=== PATIENT | female | born 1965 | race Asian ===

== ENCOUNTER 2020-06-23 09:27 | Emergency (ER) | payer SELFPAY ==
[~2020-06-23] VITALS: Ht 154.9 cm; Wt 70.0 kg
[2020-06-23 09:33] VITALS: BP 177/77
[2020-06-23] MEDS ORDERED: IBUP-2029 MT (10:36)
== END 2020-06-23 11:14 | disposition home or self-care (01) ==
LOC: ER 09:42
DX: M25.562 Pain in left knee (principal); M25.561 Pain in right knee; W01.0XXA Fall on same level from slipping, tripping and stumbling without subsequent striking against object, initial encounter; Y93.89 Activity, other specified; Y92.000 Kitchen of unspecified non-institutional (private) residence as the place of occurrence of the external cause
CPT/HCPCS: 73562; 99283

== ENCOUNTER 2021-05-01 14:05 | Emergency (ER) | payer SELFPAY ==
[~2021-05-01] VITALS: Ht 154.9 cm; Wt 66.2 kg
[~2021-05-01 14:05] MED LIST: IBUP-2029 MT
[2021-05-01] MEDS ORDERED: ALBU6.7H15 INH (16:19)
[2021-05-01 16:44] VITALS: BP 155/60
== END 2021-05-01 16:49 | disposition home or self-care (01) ==
LOC: ER 14:05
DX: Z20.822 Contact with and (suspected) exposure to COVID-19 (principal); Z98.890 Other specified postprocedural states
CPT/HCPCS: 87426; 93005; 99284

== ENCOUNTER 2021-10-13 19:31 | Emergency (ER) | payer MEDICAID, OTHER ==
[~2021-10-13] VITALS: Ht 154.9 cm; Wt 74.5 kg
[~2021-10-13 19:31] MED LIST changes: +ALBU6.7H15 INH
[2021-10-13 19:45] VITALS: BP 144/79
[2021-10-13] MEDS ORDERED: BO1 TP (21:23)
[2021-10-13] MEDS ORDERED: BACITRACIN ZINC OINT UDPKT TOP NR (21:30)
== END 2021-10-13 21:52 | disposition home or self-care (01) ==
LOC: ER 19:43
DX: T22.211A Burn of second degree of right forearm, initial encounter (principal); Z98.890 Other specified postprocedural states; X18.XXXA Contact with other hot metals, initial encounter; Y93.89 Activity, other specified; Y92.89 Other specified places as the place of occurrence of the external cause; Y99.8 Other external cause status; Z79.899 Other long term (current) drug therapy
CPT/HCPCS: 16020; 99282

== ENCOUNTER 2021-11-26 13:43 | Emergency (ER) | payer MEDICAID, OTHER ==
[~2021-11-26] VITALS: Ht 165.1 cm; Wt 73.0 kg
[~2021-11-26 13:43] MED LIST changes: +BO1 TP
[2021-11-26 14:01] VITALS: BP 137/77
[2021-11-26] MEDS ORDERED: IBUPROFEN 600MG TABLET PO STA (16:14)
[2021-11-26] MEDS ORDERED: TRAM50TA3 PO (19:01)
[2021-11-26] MEDS ORDERED: DICL100G32 TP (19:01)
[2021-11-26] MEDS ORDERED: NAPR-681 PO (19:01)
== END 2021-11-26 19:19 | disposition home or self-care (01) ==
LOC: ER 13:43
DX: M79.641 Pain in right hand (principal)
CPT/HCPCS: 73130; 99283

== ENCOUNTER 2021-11-27 19:30 | Emergency (ER) | payer OTHER ==
[~2021-11-27] VITALS: Ht 160 cm; Wt 62.0 kg
[~2021-11-27 19:30] MED LIST changes: +DICL100G32 TP; +NAPR-681 PO; +TRAM50TA3 PO
[2021-11-27 19:38] VITALS: BP 182/81
== END 2021-11-27 23:38 | disposition left against medical advice (07) ==
LOC: ER 19:30
DX: Z53.21 Procedure and treatment not carried out due to patient leaving prior to being seen by health care provider (principal)

== ENCOUNTER 2022-01-25 18:58 | Emergency (ER) | payer OTHER ==
[~2022-01-25] VITALS: Ht 165.1 cm; Wt 75.0 kg
[2022-01-25] MEDS ORDERED: NAPR-681 MT (20:55)
[2022-01-25] MEDS ORDERED: HYDROCODONE/ACETAMINOPHEN 5/325MG TABLET PO ONE (21:00)
[2022-01-25 21:20] VITALS: BP 118/78
== END 2022-01-25 21:24 | disposition home or self-care (01) ==
LOC: ER 18:58
DX: G89.29 Other chronic pain (principal); M24.541 Contracture, right hand; M79.644 Pain in right finger(s); Z87.828 Personal history of other (healed) physical injury and trauma; Z98.890 Other specified postprocedural states
CPT/HCPCS: 73130; 99283

== ENCOUNTER 2022-09-07 10:46 | Emergency (ER) | payer MEDICAID, OTHER ==
[~2022-09-07] VITALS: Ht 160 cm; Wt 59.0 kg
[~2022-09-07 10:46] MED LIST changes: +NAPR-681 MT
[2022-09-07 10:51] VITALS: BP 133/79
[2022-09-07 11:58] LABS: BASOPHILS % 0.8 % (0.0-2.0); EOSINOPHILS % 0.9 % (0.0-5.0); HEMATOCRIT. 43.7 % (36.0-48.0); HEMOGLOBIN. 14.9 g/dL (12.0-16.0); LYMPHOCYTES % 19.5 % (20.0-50.0); MEAN PLATELET VOLUME 10.2 fl (7.4-10.4); MONOCYTES % 6.7 % (2.0-8.0); NEUTROPHILS % 72.1 % (40.0-76.0); PLATELET 220 x1000/uL (130-400); RED CELL DISTRIBUTION WIDTH 13.1 % (11.6-14.6)
[2022-09-07 12:08] LABS: CHLORIDE 105 mEq/L (98-107)
[2022-09-07] MEDS ORDERED: ONDANSETRON HCL 4MG/2ML INJ IV STA (18:26)
[2022-09-07] MEDS ORDERED: MECLIZINE 12.5MG TABLET PO NR (18:30)
[2022-09-07] MEDS ORDERED: SODIUM CHLORIDE 0.9% 1,000 ML IV ONE (18:30)
[2022-09-07] MEDS ORDERED: MECLIZINE 25MG TABLET PO ONE (18:30)
[2022-09-07] MEDS ORDERED: BENZ200C52 MT (21:46)
== END 2022-09-07 21:53 | disposition home or self-care (01) ==
LOC: ER 11:25
DX: R05.1 Acute cough (principal); R42 Dizziness and giddiness; R51.9 Headache, unspecified; Z20.822 Contact with and (suspected) exposure to COVID-19
CPT/HCPCS: 36415; 70450; 71045; 80053; 83880; 84484; 85025; 87426; 93005; 96361; 96374; 99285; C9803; J2405; J7030; J8597

== ENCOUNTER 2022-09-26 22:18 | Emergency (ER) | payer MEDICAID ==
[~2022-09-26] VITALS: Ht 154.9 cm; Wt 61.9 kg
[~2022-09-26 22:18] MED LIST changes: +BENZ200C52 MT
[2022-09-26 22:20] VITALS: BP 119/75
[2022-09-26] MEDS ORDERED: IBUPROFEN 400MG TABLET PO ONE (23:45)
[2022-09-27] MEDS ORDERED: ACET-2708 MT (00:26)
== END 2022-09-27 02:09 | disposition home or self-care (01) ==
LOC: ER 22:18
DX: M79.671 Pain in right foot (principal); Z87.01 Personal history of pneumonia (recurrent); Z98.890 Other specified postprocedural states; Z79.899 Other long term (current) drug therapy
CPT/HCPCS: 73630; 99283; Z7610

== ENCOUNTER 2022-09-30 15:52 | Emergency (ER) | payer MEDICAID ==
[~2022-09-30] VITALS: Ht 157.5 cm; Wt 69.0 kg
[~2022-09-30 15:52] MED LIST changes: +ACET-2708 MT
[2022-09-30] MEDS ORDERED: KETOROLAC 60MG/2ML VIAL IM STA (17:46)
[2022-09-30] MEDS ORDERED: HYDR-4001 PO (17:52)
[2022-09-30] MEDS ORDERED: NAPR-681 PO (17:52)
[2022-09-30 19:09] VITALS: BP 122/63
== END 2022-09-30 19:12 | disposition home or self-care (01) ==
LOC: ER 15:52
DX: S92.351A Displaced fracture of fifth metatarsal bone, right foot, initial encounter for closed fracture (principal); Z79.899 Other long term (current) drug therapy; Z98.890 Other specified postprocedural states; X58.XXXA Exposure to other specified factors, initial encounter; Y93.89 Activity, other specified; Y92.89 Other specified places as the place of occurrence of the external cause; Y99.8 Other external cause status
CPT/HCPCS: 81025; 96372; 99283; J1885

== ENCOUNTER 2023-02-22 11:10 | Emergency (ER) | payer MEDICAID, OTHER ==
[~2023-02-22] VITALS: Ht 162.6 cm; Wt 65.0 kg
[~2023-02-22 11:10] MED LIST changes: +HYDR-4001 PO
[2023-02-22 11:15] VITALS: O2SAT 97
[2023-02-22 12:11] LABS: CLARITY URINE CLEAR (CLEAR); COLOR URINE YELLOW (YELLOW); GLUCOSE URINE NEGATIVE (NEGATIVE); KETONES URINE NEGATIVE (NEGATIVE); LEUKOCYTE ESTERASE URINE NEGATIVE (NEGATIVE); NITRITE URINE NEGATIVE (NEGATIVE); OCCULT BLOOD URINE NEGATIVE (NEGATIVE); PH URINE 5.5 (4.5-8.0); PROTEIN URINE NEGATIVE (NEGATIVE); SPECIFIC GRAVITY URINE 1.012 (1.005-1.030); UROBILINOGEN URINE 0.2 E.U./dL (0.2-1.0)
[2023-02-22 12:19] LABS: BASOPHILS % 0.6 % (0.0-2.0); EOSINOPHILS % 2.3 % (0.0-5.0); HEMATOCRIT. 36.4 % (36.0-48.0); HEMOGLOBIN. 12.1 g/dL (12.0-16.0); LYMPHOCYTES % 19.5 % (20.0-50.0); MEAN CORPUSCULAR HEMOGLOBIN 29.9 pg (28.0-32.0); MEAN CORPUSCULAR HGB CONC 33.2 g/dL (31.0-37.0); MEAN CORPUSCULAR VOLUME 90.1 fL (81.0-99.0); MEAN PLATELET VOLUME 9.5 fl (7.4-10.4); MONOCYTES % 9.8 % (2.0-8.0); NEUTROPHILS % 67.8 % (40.0-76.0); PLATELET 225 x1000/uL (130-400); RED BLOOD CELL COUNT 4.04 mill/uL (4.2-5.4); RED CELL DISTRIBUTION WIDTH 12.7 % (11.6-14.6); WHITE BLOOD COUNT 8.7 x1000/uL (4.5-11.0)
[2023-02-22 12:26] LABS: CHLORIDE 107 mEq/L (98-107); INDEX HEMOLYSI 1 (1-3); INDEX ICTERIC 1 (1-4); INDEX LIPEMIC 1 (1-3); POTASSIUM 3.5 mEq/L (3.5-5.1); SODIUM 138 mEq/L (136-145)
[2023-02-22 12:30] LABS: PROTHROMBIN TIME 10.5 sec (9.6-11.0)
[2023-02-22 12:39] LABS: ALANINE AMINOTRANSFERASE 22 IU/L (13-61); ALBUMIN 3.2 g/dL (3.4-5.0); ASPARTATE AMINOTRANSFERASE 17 IU/L (15-37); BILIRUBIN TOTAL 0.7 mg/dL (0.1-1.0); CALCIUM 8.4 mg/dL (8.5-10.1); CARBON DIOXIDE 28 mEq/L (21-32); CREATININE 0.6 mg/dL (0.6-1.3); GLUCOSE 175 mg/dL (70-105); NT PRO B-TYPE NATRIURETIC PEP 139 pg/mL (5-125); PROTEIN TOTAL 8.3 g/dL (6.0-8.3); TROPONIN I HIGH SENSITIVITY 14 ng/L (<54); UREA NITROGEN BLOOD 14 mg/dL (7-21)
[2023-02-22] MEDS ORDERED: FUROSEMIDE 40MG/4ML VIAL IVP ONE (12:45)
[2023-02-22] MEDS ORDERED: ALBUTEROL (0.083%) 2.5MG/3ML NEB HHN ONE (13:30)
[2023-02-22] MEDS ORDERED: MED4 MT (13:53)
[2023-02-22] MEDS ORDERED: ALBU6.7H15 INH ×2 (13:53)
[2023-02-22] MEDS ORDERED: FUROSEMIDE 40MG/4ML VIAL IVP NR (14:33)
[2023-02-22 15:00] VITALS: PULSE 80; RESP 20
[2023-02-22] MEDS ORDERED: IPRATROPIUM/ALBUTEROL 0.5-3(2.5)MG/3ML NEB HHN ONE (15:00)
[2023-02-22] MEDS ORDERED: ALBUTEROL (0.083%) 2.5MG/3ML NEB HHN NR (15:05)
[2023-02-22 16:09] VITALS: BP 132/86; PULSE 80; RESP 20; TEMP 98.5
== END 2023-02-22 16:10 | disposition home or self-care (01) ==
LOC: ER 11:10
DX: J20.9 Acute bronchitis, unspecified (principal); Z98.890 Other specified postprocedural states
CPT/HCPCS: 80053; 81003; 83880; 85025; 85610; 84484; 36415; 71045; 94640; 93005; 99285; Z7610 ×3; J1940

== ENCOUNTER 2024-02-12 10:06 | Emergency (ER) | payer MEDICAID, OTHER ==
[~2024-02-12] VITALS: Ht 152.4 cm; Wt 74.6 kg
[~2024-02-12 10:06] MED LIST changes: -IBUP-2029 MT; +MECL-299 MT; +MELO-105 PO; -NAPR-681 MT; -NAPR-681 PO; +PANT40TA51 PO
[2024-02-12 10:19] VITALS: O2SAT 97
[2024-02-12 10:59] LABS: BASOPHILS % 0.9 % (0.0-2.0); EOSINOPHILS % 3.1 % (0.0-5.0); HEMATOCRIT. 38.4 % (36.0-48.0); HEMOGLOBIN. 12.5 g/dL (12.0-16.0); LYMPHOCYTES % 32.2 % (20.0-50.0); MEAN CORPUSCULAR HEMOGLOBIN 29.6 pg (28.0-32.0); MEAN CORPUSCULAR HGB CONC 32.5 g/dL (31.0-37.0); MEAN PLATELET VOLUME 10.2 fl (7.4-10.4); MONOCYTES % 7.2 % (2.0-8.0); NEUTROPHILS % 56.6 % (40.0-76.0); PLATELET 174 x1000/uL (130-400); RED BLOOD CELL COUNT 4.22 mill/uL (4.2-5.4); RED CELL DISTRIBUTION WIDTH 13.3 % (11.6-14.6); WHITE BLOOD COUNT 6.8 x1000/uL (4.5-11.0)
[2024-02-12 11:05] LABS: CHLORIDE 104 mEq/L (98-107); POTASSIUM 3.7 mEq/L (3.5-5.1); SODIUM 138 mEq/L (136-145)
[2024-02-12 11:06] LABS: CARBON DIOXIDE 28 mEq/L (21-32)
[2024-02-12 11:10] LABS: TROPONIN I HIGH SENSITIVITY 15 ng/L (3.0-34)
[2024-02-12 11:11] LABS: CREATININE 0.7 mg/dL (0.6-1.0); GLUCOSE 186 mg/dL (70-105); UREA NITROGEN BLOOD 13 mg/dL (9-23)
[2024-02-12] MEDS ORDERED: ALBU18HF2 IH (11:49)
[2024-02-12] MEDS ORDERED: FLUT15.844 BOTHNSTRLS (11:50)
[2024-02-12 13:41] VITALS: BP 152/83; PULSE 57; RESP 18; TEMP 37.05852; O2SAT 98
== END 2024-02-12 13:42 | disposition home or self-care (01) ==
LOC: ER 10:23
DX: J20.9 Acute bronchitis, unspecified (principal); I10 Essential (primary) hypertension; E11.9 Type 2 diabetes mellitus without complications; Z79.899 Other long term (current) drug therapy
CPT/HCPCS: 36415; 71045; 80048; 84484; 85025; 93005; 99285

== ENCOUNTER 2024-05-28 15:09 | Emergency (ER) | payer OTHER ==
[~2024-05-28] VITALS: Ht 154.9 cm; Wt 65.8 kg
[~2024-05-28 15:09] MED LIST changes: +ALBU18HF2 IH; +FLUT15.844 BOTHNSTRLS
[2024-05-28 15:21] VITALS: O2SAT 98
[2024-05-28 16:06] LABS: BASOPHILS % 0.9 % (0.0-2.0); EOSINOPHILS % 3.1 % (0.0-5.0); HEMATOCRIT. 37.9 % (36.0-48.0); HEMOGLOBIN. 12.8 g/dL (12.0-16.0); LYMPHOCYTES % 27.8 % (20.0-50.0); MEAN CORPUSCULAR HEMOGLOBIN 30.9 pg (28.0-32.0); MEAN CORPUSCULAR HGB CONC 33.7 g/dL (31.0-37.0); MEAN CORPUSCULAR VOLUME 91.7 fL (81.0-99.0); MEAN PLATELET VOLUME 10.1 fl (7.4-10.4); MONOCYTES % 8.6 % (2.0-8.0); NEUTROPHILS % 59.6 % (40.0-76.0); PLATELET 204 x1000/uL (130-400); RED BLOOD CELL COUNT 4.13 mill/uL (4.2-5.4); RED CELL DISTRIBUTION WIDTH 13.3 % (11.6-14.6); WHITE BLOOD COUNT 8.1 x1000/uL (4.5-11.0)
[2024-05-28 16:11] LABS: CHLORIDE 106 mEq/L (98-107); POTASSIUM 3.6 mEq/L (3.5-5.1); SODIUM 141 mEq/L (136-145)
[2024-05-28 16:12] LABS: CARBON DIOXIDE 28 mEq/L (21-32)
[2024-05-28 16:13] LABS: CALCIUM 9.2 mg/dL (8.7-10.4)
[2024-05-28 16:17] LABS: CREATININE 0.7 mg/dL (0.6-1.0); GLUCOSE 130 mg/dL (70-105); UREA NITROGEN BLOOD 11 mg/dL (9-23)
[2024-05-28] MEDS: IBUPROFEN 600MG TABLET PO STA (17:47)
[2024-05-28] MEDS: HYDROCHLOROTHIAZIDE 25MG TABLET PO ONE (18:00)
[2024-05-28] MEDS: METOCLOPRAMIDE 10MG/10 ML UDC PO ONE (18:00)
[2024-05-28] MEDS ORDERED: HYDR25TA PO (19:00)
[2024-05-28] MEDS ORDERED: IBUP-2028 PO (19:00)
[2024-05-28 21:30] VITALS: BP 149/68; PULSE 60; RESP 17; TEMP 37; O2SAT 100
== END 2024-05-28 21:31 | disposition home or self-care (01) ==
LOC: ER 15:09
DX: I10 Essential (primary) hypertension (principal); E11.9 Type 2 diabetes mellitus without complications; Z79.1 Long term (current) use of non-steroidal anti-inflammatories (NSAID); Z79.899 Other long term (current) drug therapy
CPT/HCPCS: 99284; 70450; 80048; 85025; 36415; J8597

== ENCOUNTER 2024-09-19 17:18 | Emergency (ER) | payer SELFPAY ==
[~2024-09-19] VITALS: Ht 154.9 cm; Wt 68.0 kg
[~2024-09-19 17:18] MED LIST changes: +HYDR25TA PO; +IBUP-2028 PO
[2024-09-19 17:35] VITALS: TEMP 36.5; O2SAT 97
[2024-09-19 18:30] LABS: BASOPHILS % 0.9 % (0.0-2.0); EOSINOPHILS % 2.1 % (0.0-5.0); HEMATOCRIT. 36.5 % (36.0-48.0); HEMOGLOBIN. 12.4 g/dL (12.0-16.0); LYMPHOCYTES % 27.9 % (20.0-50.0); MEAN CORPUSCULAR HEMOGLOBIN 31.1 pg (28.0-32.0); MEAN CORPUSCULAR VOLUME 91.5 fL (81.0-99.0); MEAN PLATELET VOLUME 9.6 fl (7.4-10.4); MONOCYTES % 7.9 % (2.0-8.0); NEUTROPHILS % 61.2 % (40.0-76.0); PLATELET 206 x1000/uL (130-400); RED BLOOD CELL COUNT 3.99 mill/uL (4.2-5.4); WHITE BLOOD COUNT 9.9 x1000/uL (4.5-11.0)
[2024-09-19 18:40] LABS: CHLORIDE 109 mEq/L (98-107); POTASSIUM 3.6 mEq/L (3.5-5.1); SODIUM 142 mEq/L (136-145)
[2024-09-19 18:41] LABS: CARBON DIOXIDE 28 mEq/L (21-32)
[2024-09-19 18:42] LABS: CALCIUM 9.1 mg/dL (8.7-10.4)
[2024-09-19 18:44] LABS: HCG SCREEN NEGATIVE
[2024-09-19 18:46] LABS: CREATININE 0.9 mg/dL (0.6-1.0); GLUCOSE 125 mg/dL (70-105); UREA NITROGEN BLOOD 15 mg/dL (9-23)
[2024-09-19 18:47] LABS: TROPONIN I HIGH SENSITIVITY 8 ng/L (3.0-34)
[2024-09-19 20:52] LABS: TROPONIN I HIGH SENSITIVITY 9 ng/L (3.0-34)
[2024-09-19] MEDS ORDERED: BENZ200C52 MT (21:04)
[2024-09-19 21:48] VITALS: BP 139/83; PULSE 60; RESP 18; O2SAT 98
== END 2024-09-19 21:50 | disposition home or self-care (01) ==
LOC: ER 17:18
DX: B34.9 Viral infection, unspecified (principal); E11.9 Type 2 diabetes mellitus without complications; I10 Essential (primary) hypertension; Z79.1 Long term (current) use of non-steroidal anti-inflammatories (NSAID); Z79.899 Other long term (current) drug therapy
CPT/HCPCS: 36415; 71045; 80048; 84484; 84703; 85025; 85379; 93005; 99285

== ENCOUNTER 2025-03-29 13:15 | Emergency (ER) | payer MEDICAID ==
[~2025-03-29] VITALS: Ht 157.5 cm; Wt 69.0 kg
[~2025-03-29 13:15] MED LIST changes: -DICL100G32 TP; +DICL100G46 TP
[2025-03-29 13:16] VITALS: O2SAT 99
[2025-03-29 13:52] VITALS: TEMP 36.9; O2SAT 98
[2025-03-29 16:17] VITALS: BP 130/74; PULSE 61; RESP 16
[2025-03-29] MEDS: KETOROLAC 30MG/ML VIAL IM ONE (16:17)
== END 2025-03-29 16:20 | disposition home or self-care (01) ==
LOC: ER 13:15
DX: R51.9 Headache, unspecified (principal); E11.9 Type 2 diabetes mellitus without complications; I10 Essential (primary) hypertension; Z79.899 Other long term (current) drug therapy; W10.9XXA Fall (on) (from) unspecified stairs and steps, initial encounter; Y93.89 Activity, other specified; Y92.89 Other specified places as the place of occurrence of the external cause; Y99.8 Other external cause status
CPT/HCPCS: 96372; 99283; J1885; Z7610